=== PATIENT | male | born 2000 | race Hispanic/Latino ===

== ENCOUNTER 2022-10-07 19:52 | Emergency (ER) | payer OTHER ==
[2022-10-07] MEDS ORDERED: Tobrex EYE DROPS 5 ML OP ONE ×2 (20:56→21:09)
--- NOTE | 2022-10-07 21:06 | ERPHSYRPT ---
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 Triage Nursing Assessment: Pt alert and oriented x3. No apparent respiratory distress. Ambulated to ED cot without difficulty. No redness/deformities /drainage from eye. 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 There was blood and saliva in the left eye. Timing/Duration: today Severity: mild Allergies/Adverse Reactions: No Known Drug Allergies Allergy (Unverified 10/07/22 20:56) Home Medications: No Reportable Medications [No Reported Medications] 10/07/22 [History] Hx Tetanus, Diphtheria Vaccination/Date Given: Yes Hx Influenza Vaccination/Date Given: Yes Hx Pneumococcal Vaccination/Date Given: No Travel Risk - International Travel Have you traveled outside of the country in past 3 weeks: No - Coronavirus Screening Are you exhibiting any of the following symptoms?: No Close contact with a COVID-19 positive Pt in past 14-21 Days: No - Vaccine Status Have you recieved a Covid-19 vaccination: No - Review of Systems Constitutional: No Fever, No Chills Eyes: No Symptoms Ears, Nose, & Throat: No Symptoms Respiratory: No Cough, No Dyspnea Cardiac: No Chest Pain, No Edema, No Syncope Abdominal/Gastrointestinal: No Abdominal Pain, No Nausea, No Vomiting, No Diarrhea Genitourinary Symptoms: No Dysuria Musculoskeletal: No Back Pain, No Neck Pain Skin: No Rash Neurological: No Dizziness, No Focal Weakness, No Sensory Changes Psychological: No Symptoms Endocrine: No Symptoms All Other Systems: Reviewed and Negative - Past Medical History Pertinent Past Medical History: Yes Other Medical History: torn meniscus - Past Surgical History Past Surgical History: Yes Musculoskeletal: Orthopedic Surgery - Social History Smoking Status: Never smoker Exposure to second hand smoke: No Drug Use: none Patient Lives Alone: No - Nursing Vital Signs Nursing Vital Signs: Initial Vital Signs Temperature 98.4 F 10/07/22 20:53 Pulse Rate 61 10/07/22 20:53 Respiratory Rate 16 10/07/22 20:53 Blood Pressure 131/75 10/07/22 20:53 O2 Sat by Pulse Oximetry 98 10/07/22 20:53 Pain Scale Pain Intensity 0 - Physical Exam General Appearance: no apparent distress Eye Exam: PERRL/EOMI, eyes nml inspection Ears, Nose, Throat Exam: normal ENT inspection, TMs normal, pharynx normal, moist mucous membranes Neck Exam: normal inspection, non-tender, supple, full range of motion SpO2: 98 - Course Nursing assessment & vital signs reviewed: Yes Ordered Tests: Medication Summary Discontinued Medications Generic Name Dose Route Start Last Admin Trade Name Freq PRN Reason Stop Dose Admin Tobramycin Sulfate 5 ml 10/07/22 20:56 Tobramycin Sulfate 0.3% 5 Ml Bottle Eye Drops OP 10/07/22 20:57 STAT ONE - Progress Progress: unchanged Progress Note: 10/07/22 21:06 We will obtain a hepatitis and HIV specimen from the victim and we have arranged to have the patient evaluated for body fluid exposure at [facility]. Medical Desision Making - Independent Historian Additional History obtained from: EMS - Risk of complications Minimal Risk: Minimal risk of morbidity - Departure Departure Disposition: Home Clinical Impression: Exposure to body fluid Condition: Stable Critical Care Time: No
[2022-10-07 21:20] VITALS: BP 124/76; PULSE 63; O2SAT 99
[2022-10-09 08:12] LABS: HBsAg Screen Negative (Negative); HCV Ab Non Reactive (Non Reactive); Hep A Ab, IgM Negative (Negative); Hep B Core Ab, IgM Negative (Negative)
[2022-10-09 12:12] LABS: HIV Screen 4th Generation wRfx Non Reactive (Non Reactive)
== END 2022-10-07 21:31 | disposition home or self-care (01) ==
LOC: ED 19:52
DX: Z77.21 Contact with and (suspected) exposure to potentially hazardous body fluids (principal); Z28.310 Unvaccinated for COVID-19
CPT/HCPCS: 36415; 80074; 87389; 99281; A9270-GY